=== PATIENT | male | born 1970 ===

== ENCOUNTER 2017-12-19 16:45 | Emergency (ER) | payer OTHER ==
[~2017-12-19] VITALS: Ht 177.8 cm; Wt 95.3 kg
--- NOTE | 2017-12-19 19:25 | Diagnostic Imaging Report ---
Exam: Right Hand Series. History: Right hand injury, pain to middle of the hand, history of right hand injury 10 years ago. Comparison: None. Findings: 3 views of the right hand. There is normal bone mineralization. Negative for acute, displaced fracture or dislocation. Minimal degenerative changes in the distal interphalangeal joints. Questionable deformity of the fifth metacarpal bone, which may reflect prior healed fracture. No abnormal soft tissue calcification or mass. No cystic erosive changes.No soft tissue swelling. Impression: 1. No acute, displaced fracture or dislocation. Signed by: Dr. Jeff Myrick M.D. on 12/19/2017 7:22 PM
== END 2017-12-19 22:03 | disposition home or self-care (01) ==
LOC: ER 16:53
DX: S60.221A Contusion of right hand, initial encounter (principal); W22.8XXA Striking against or struck by other objects, initial encounter; Y92.008 Other place in unspecified non-institutional (private) residence as the place of occurrence of the external cause; F17.210 Nicotine dependence, cigarettes, uncomplicated
CPT/HCPCS: 99283